=== PATIENT | female | born 1985 | race Caucasian/White ===

== ENCOUNTER 2017-10-07 09:19 | Emergency (ER) | payer BC ==
[~2017-10-07] VITALS: Ht 170.2 cm; Wt 65.8 kg
[2017-10-07 09:25] VITALS: BP 108/69
== END 2017-10-07 09:44 | disposition home or self-care (01) ==
LOC: ER 09:22
DX: J02.9 Acute pharyngitis, unspecified (principal)
CPT/HCPCS: A4606; Z7502; Z7610